=== PATIENT | male | born 1995 | race Caucasian/White ===

== ENCOUNTER → 2017-02-03 | Outpatient (CLI) | payer BC ==
--- NOTE | 2017-02-03 08:43 | DIAGNOSTIC IMAGING REPORT ---
BILATERAL CLENCHED VIEWS OF THE WRISTS CLINICAL HISTORY: RIGHT WRIST PAIN COMPARISON: None. DISCUSSION: No fractures are visualized on this single projection. There is a tiny bone island within the distal radius of the left wrist. The scapholunate distances appear symmetric. No navicular fractures are visualized on the single projection. IMPRESSION: No significant bony abnormalities. Electronically signed by: Jorge Luis Spivey M.D. 02/03/2017 8:42 AM Dictated Date/Time: 02/03/2017 8:40 AM
== END | disposition home or self-care (01) ==
LOC: C.RDSM 08:24
PROVIDERS: ATTEND Family Medicine
DX: M25.531 Pain in right wrist (principal)

== ENCOUNTER → 2017-02-06 | Outpatient (CLI) | payer BC ==
--- NOTE | 2017-02-06 14:54 | DIAGNOSTIC IMAGING REPORT ---
MRI THE RIGHT WRIST NO CONTRAST CLINICAL HISTORY: Right wrist pain status post trauma. Negative conventional radiographs. COMPARISON STUDY: Clenched view of the wrist dated 02/03/2017 FINDINGS: There is focal marrow edema within the trapezoid. Given history of trauma, this likely represents an occult fracture/bone bruise. There are no areas of marrow edema within the scaphoid to indicate an occult fracture. The scapholunate distance appears normal. There is mild irregularity of the triangle fibrocartilage, but this structure is difficult to evaluate without joint contrast. There is a small spur arising from the dorsal aspect of the navicular. No tendon tears are visualized. There are no findings to indicate tenosynovitis. IMPRESSION: 1. Marrow edema within the trapezoid. Given the history this likely represents an occult fracture/bone bruise. Electronically signed by: Jorge Luis Spivey M.D. 02/06/2017 2:53 PM Dictated Date/Time: 02/06/2017 2:47 PM
== END | disposition home or self-care (01) ==
LOC: C.MRI 13:49
PROVIDERS: ATTEND Family Medicine
DX: M25.531 Pain in right wrist (principal)